=== PATIENT | male | born 1955 | race African-American/Black ===

== ENCOUNTER 2018-12-22 21:16 | Inpatient (IN) | payer MEDICAID ==
[~2018-12-22] VITALS: Ht 170.2 cm; Wt 59.6 kg
--- NOTE | 2018-12-22 21:24 | NUR ---
rocio. report received from ems. pt c/o chest tightness x 2days with cough. hx of pneumonia. pt's aox4. resps even and unlabored. pt denies n/v/d at this time. all monitors in place. call light within reach. edmd at bedside to assess at this time.
[2018-12-22] MEDS ORDERED: ASPIRIN 81 MG TABLET CHEW ONE (21:27)
[2018-12-22] MEDS ORDERED: methylPREDNISolone SOD SUCC 125 MG/2 ML ONE (21:28)
[2018-12-22] MEDS ORDERED: MORPHINE SULFATE 4 MG/ML, 1ML ONE (21:28)
[2018-12-22] MEDS ORDERED: ALBUTEROL/IPRATROPIUM 2.5MG/0.5MG, 3 ML NPPB ONE (21:30)
[2018-12-22] MEDS ORDERED: SODIUM CHLORIDE FLUSH 10ML SYR IVF ONE (21:30)
[2018-12-22] MEDS ORDERED: MORPHINE SULFATE 4 MG/ML, 1ML IVPush PRN (21:30)
[2018-12-22] MEDS ORDERED: methylPREDNISolone SOD SUCC 125 MG/2 ML IVP ONE (21:30)
[2018-12-22] MEDS ORDERED: ASPIRIN 81 MG TABLET CHEW PO ONE (21:30)
--- NOTE | 2018-12-22 21:37 | NUR ---
pt medicated per emar. pt tolerated well. pt's aox4. resps even and unlabored.
--- NOTE | 2018-12-22 21:37 | NUR ---
rt at bedside now.
[2018-12-22] MEDS ORDERED: ATOR10TA9 PO (21:55)
[2018-12-22] MEDS ORDERED: AMLO10TA8 PO (21:55)
[2018-12-22] MEDS ORDERED: FURO-93 PO (21:55)
[2018-12-22] MEDS ORDERED: CLOP75TA52 PO (21:56)
--- NOTE | 2018-12-22 22:00 | NUR ---
URINAL AT BEDSIDE NOW
[2018-12-22 22:03] LABS: BASOPHILS # (AUTO) 0.04 x10^3/uL (0-0.1); BASOPHILS % (AUTO) 0 % (0-1); EOSINOPHILS # (AUTO) 0.06 x10^3/uL (0-0.4); EOSINOPHILS % (AUTO) 0 % (1-7); LYMPHOCYTES # (AUTO) 1.19 x10^3/uL (1-3.4); LYMPHOCYTES % (AUTO) 9 % (22-44); MD NO; MEAN CORPUSCULAR HEMOGLOBIN 28.3 pg (27.5-34.5); MEAN CORPUSCULAR HGB CONC 33.8 g/dL (33.2-36.2); MEAN CORPUSCULAR VOLUME 83.9 fL (81-97); MEAN PLATELET VOLUME 7.7 fL (7.4-10.4); MONOCYTES # (AUTO) 1.14 x10^3/uL (0.2-0.8); MONOCYTES % (AUTO) 9 % (2-9); NEUTROPHILS # (AUTO) 10.96 x10^3/uL (1.8-6.8); NEUTROPHILS % (AUTO) 82 % (42-75); PLATELET COUNT 267 x10^3/uL (130-400); RED BLOOD COUNT 3.47 x10^6/uL (4.38-5.82); RED CELL DISTRIBUTION WIDTH 16.2 % (9.4-14.8)
[2018-12-22 22:13] LABS: ALANINE AMINOTRANSFERASE 23 U/L (12-78); ALBUMIN 2.6 g/dL (3.4-5.0); ANION GAP 6 mmol/L (5-15); CALCIUM 8.3 mg/dL (8.5-10.1); CHLORIDE 100 mmol/L (98-107); CREATININE 0.98 mg/dL (0.7-1.3)
[2018-12-22 22:18] LABS: ALKALINE PHOSPHATASE 86 U/L (45-117); BILIRUBIN,TOTAL 0.2 mg/dL (0.2-1.0); TOTAL PROTEIN 7.7 g/dL (6.4-8.2); TROPONIN I 0.027 ng/mL (0.000-0.045)
[2018-12-22 22:52] LABS: AMPHETAMINE SCREEN, URINE Negative (Negative); BARBITURATE SCREEN, URINE Negative (Negative); BENZODIAZEPINE SCREEN, URINE Negative (Negative); CANNABINOID SCREEN, URINE Negative (Negative); COCAINE SCREEN, URINE Negative (Negative); METHADONE SCREEN, URINE Negative (Negative); OPIATE SCREEN, URINE Positive (Negative)
--- NOTE | 2018-12-22 23:57 | NUR ---
PT RESTING IN [facility]. PT'S AOX4. RESPS EVEN AND UNLABORED. ALL MONITORS IN PLACE. CALL LIGHT WITHIN REACH.
[2018-12-23] MEDS ORDERED: FUROSEMIDE 20 MG/2 ML ONE ×2 (00:58→07:55)
[2018-12-23] MEDS ORDERED: POLYETHYLENE GLYCOL 17 GM PACKET PO PRN (01:00)
[2018-12-23] MEDS ORDERED: hydrALAzine 20 MG/ML, 1ML IVPush PRN (01:00)
[2018-12-23] MEDS ORDERED: METOPROLOL TARTRATE 25 MG TABLET ONE (01:03)
[2018-12-23] MEDS: FUROSEMIDE 20 MG/2 ML IV SCH ×3 (01:05→16:55)
--- NOTE | 2018-12-23 01:14 | NUR ---
PT MEDICATED PER EMAR. PT TOLERATED WELL. PT'S AOX4. RESPS EVEN AND UNLABORED.
--- NOTE | 2018-12-23 01:14 | NUR ---
MED ORDERED FROM PHARMACY AT THIS TIME.
[2018-12-23 01:46] LABS: INTERNATIONAL NORMALIZED RATIO 1.12 (0.93-1.1); PROTHROMBIN TIME 11.7 Seconds (9.6-11.5)
[2018-12-23] MEDS: METOPROLOL SUCCINATE 25 MG TAB.ER.24H PO SCH ×2 (01:47→05:54)
--- NOTE | 2018-12-23 01:48 | NUR ---
PT MEDICATED PER EMAR. PT TOLERATED WELL. PT'S AOX4. RESPS EVEN AND UNLANBORED.
[2018-12-23 01:53] LABS: TROPONIN I 0.019 ng/mL (0.000-0.045)
[2018-12-23] MEDS ORDERED: OMNIPAQUE 350 MG/ML, 150 ML BOTTLE ONE (02:19)
--- NOTE | 2018-12-23 02:40 | NUR ---
PT RESTING IN [facility]. RESPS EVEN AND UNLABORED. ALL MONITORS IN PLACE. CALL LIGHT WITHIN REACH.
--- NOTE | 2018-12-23 03:52 | NUR ---
PT SLEEPING IN [facility]. RESPS EVEN AND UNLABORED. ALL MONITORS IN PLACE. CALL LIGHT WITHIN REACH.
--- NOTE | 2018-12-23 04:35 | NUR ---
PT PROVIDED HOSPITAL BED AT THIS TIME.
--- NOTE | 2018-12-23 05:19 | NUR ---
pt sleeping in hospital bed. resps even and unlabored. all monitors in place. call light within reach.
--- NOTE | 2018-12-23 05:46 | NUR ---
med ordered from pharmacy at this time.
--- NOTE | 2018-12-23 05:55 | NUR ---
PT MEDICATED PER EMAR. PT TOLERATED WELL. PT'S AOX4. RESPS EVEN AND UNLABORED.
--- NOTE | 2018-12-23 06:57 | NUR ---
report given to yuly dailey.
--- NOTE | 2018-12-23 07:00 | NUR ---
RECEIVED BEDSIDE REPORT FROM TUCKER. PT DENIES ANY NEEDS AT THIS TIME. WATCHING TV IN BED. HR SINUS. CALL LIGHT IN PLACE, IN HOSPITAL BED.
[2018-12-23 07:32] LABS: TROPONIN I 0.016 ng/mL (0.000-0.045)
--- NOTE | 2018-12-23 08:02 | NUR ---
PT EATING BREAKFAST, VERBALIZED NO NEEDS AT THIS TIME
[2018-12-23] MEDS ORDERED: LISINOPRIL 5 MG TABLET ONE (08:54)
[2018-12-23] MEDS ORDERED: CLOPIDOGREL 75 MG TABLET ONE (08:54)
[2018-12-23] MEDS: CLOPIDOGREL 75 MG TABLET PO SCH (08:56)
[2018-12-23] MEDS: LISINOPRIL 5 MG TABLET PO SCH (08:57)
[2018-12-23] MEDS ORDERED: AMLODIPINE 10 MG TAB PO SCH (09:00)
--- NOTE | 2018-12-23 09:03 | NUR ---
ATE 100% BREAKFAST, WATCHING TV, CAR SHAGGER SINUS TACY AT 107, VERBALZIED NO NEEDS AT THIS TIME. CALL LIGHT IN PLACE, DENIES PAIN OR SOB.
--- NOTE | 2018-12-23 10:00 | NUR ---
PT WATCHING TV, VERBALIZED NO NEEDS AT THIS TIME
[2018-12-23] MEDS ORDERED: ALBUTEROL SULFATE 2.5 MG/3 ML ONE ×2 (10:26→14:13)
[2018-12-23] MEDS ORDERED: ALBUTEROL SULFATE 2.5 MG/3 ML NPPB PRN (10:30)
[2018-12-23] MEDS: ALBUTEROL SULFATE 2.5 MG/3 ML NPPB SCH ×2 (10:39→15:00)
--- NOTE | 2018-12-23 11:00 | NUR ---
PT SLEEPING, RESP EVEN AND UNLABORED
--- NOTE | 2018-12-23 12:00 | NUR ---
LUNCH GIVEN TO PATIENT. VERBALIZED NO NEEDS AT THIS TIME
--- NOTE | 2018-12-23 13:02 | NUR ---
CALLED DR. BELLO AND EXPLAINED BLOOD CULTURES X 2 POSITIVE, NO ORDERS RECEIVED
--- NOTE | 2018-12-23 13:32 | NUR ---
PT UP TO BATHROOM WITH STAND BY ASSIST. PT GAIT SLOW AND STEADY
--- NOTE | 2018-12-23 14:18 | NUR ---
REPORT TO JESÚS PLAN OF CARE DISCUSSED
[2018-12-23] MEDS ORDERED: ATOR20TA86 PO (14:51)
[2018-12-23] MEDS ORDERED: AMLO2.5T5 PO (14:52)
[2018-12-23 14:54] VITALS: BP 141/69
[2018-12-23] MEDS ORDERED: VANCOMYCIN 1,500 MG in SODIUM CHLORIDE 0.9% 250 ML IV SCH (15:30)
[2018-12-23] MEDS ORDERED: VANCOMYCIN 1,500 MG in SODIUM CHLORIDE 0.9% 250 ML IV ONE (15:30)
[2018-12-23] MEDS: ENOXAPARIN 40 MG/0.4 ML SQ SCH (16:55)
[2018-12-23 17:16] LABS: HCT (SEDRATE) 26.7 % (39.2-51.8)
[2018-12-23 19:41] VITALS: BP 103/52
[2018-12-23] MEDS: ATORVASTATIN 40 MG TABLET PO SCH (20:34)
[2018-12-24 01:49] VITALS: BP 146/79
[2018-12-24 03:36] LABS: MEAN CORPUSCULAR HGB CONC 33.2 g/dL (33.2-36.2); MEAN CORPUSCULAR VOLUME 84.3 fL (81-97); MEAN PLATELET VOLUME 7.6 fL (7.4-10.4); PLATELET COUNT 319 x10^3/uL (130-400); RED BLOOD COUNT 3.35 x10^6/uL (4.38-5.82); RED CELL DISTRIBUTION WIDTH 15.9 % (9.4-14.8)
[2018-12-24 03:42] LABS: ALANINE AMINOTRANSFERASE 22 U/L (12-78); ALBUMIN 2.2 g/dL (3.4-5.0); ANION GAP 6 mmol/L (5-15); CALCIUM 8.4 mg/dL (8.5-10.1); CHLORIDE 102 mmol/L (98-107); CREATININE 0.94 mg/dL (0.7-1.3)
[2018-12-24 03:44] LABS: ALKALINE PHOSPHATASE 69 U/L (45-117); BILIRUBIN,TOTAL 0.2 mg/dL (0.2-1.0)
[2018-12-24] MEDS: VANCOMYCIN PMX 1GM/200ML 200 ML IVPB SCH ×2 (04:10→16:08)
[2018-12-24 05:49] LABS: BASOPHILS % (AUTO) 1 % (0-1); EOSINOPHILS # (AUTO) 0.03 x10^3/uL (0-0.4); EOSINOPHILS % (AUTO) 0 % (1-7); LYMPHOCYTES # (AUTO) 1.12 x10^3/uL (1-3.4); LYMPHOCYTES % (AUTO) 7 % (22-44); MD SCAN; MONOCYTES # (AUTO) 0.67 x10^3/uL (0.2-0.8); MONOCYTES % (AUTO) 4 % (2-9); NEUTROPHILS # (AUTO) 13.96 x10^3/uL (1.8-6.8); NEUTROPHILS % (AUTO) 88 % (42-75)
[2018-12-24] MEDS: METOPROLOL SUCCINATE 25 MG TAB.ER.24H PO SCH (06:03)
[2018-12-24] MEDS: ALBUTEROL SULFATE 2.5 MG/3 ML NPPB SCH ×5 (07:20→20:02)
[2018-12-24] MEDS: FUROSEMIDE 20 MG/2 ML IV SCH ×2 (08:40→16:08)
[2018-12-24] MEDS: LISINOPRIL 5 MG TABLET PO SCH (08:40)
[2018-12-24] MEDS: CLOPIDOGREL 75 MG TABLET PO SCH (08:40)
[2018-12-24 09:19] VITALS: BP 120/71
[2018-12-24 15:45] VITALS: BP 96/68
[2018-12-24] MEDS: ENOXAPARIN 40 MG/0.4 ML SQ SCH (16:08)
[2018-12-24] MEDS: ACETAMINOPHEN 325 MG TABLET PO PRN (16:55)
[2018-12-24] MEDS: ATORVASTATIN 40 MG TABLET PO SCH (20:01)
[2018-12-24 20:18] VITALS: BP 126/64
[2018-12-25 00:50] VITALS: BP 132/86
[2018-12-25] MEDS: VANCOMYCIN PMX 1GM/200ML 200 ML IVPB SCH (03:31)
[2018-12-25 04:22] LABS: BASOPHILS # (AUTO) 0.03 x10^3/uL (0-0.1); BASOPHILS % (AUTO) 0 % (0-1); EOSINOPHILS # (AUTO) 0.11 x10^3/uL (0-0.4); EOSINOPHILS % (AUTO) 1 % (1-7); LYMPHOCYTES # (AUTO) 1.41 x10^3/uL (1-3.4); LYMPHOCYTES % (AUTO) 15 % (22-44); MD NO; MEAN CORPUSCULAR HEMOGLOBIN 28.4 pg (27.5-34.5); MEAN CORPUSCULAR HGB CONC 34.1 g/dL (33.2-36.2); MEAN CORPUSCULAR VOLUME 83.2 fL (81-97); MEAN PLATELET VOLUME 7.4 fL (7.4-10.4); MONOCYTES # (AUTO) 1.16 x10^3/uL (0.2-0.8); MONOCYTES % (AUTO) 12 % (2-9); NEUTROPHILS # (AUTO) 6.73 x10^3/uL (1.8-6.8); NEUTROPHILS % (AUTO) 71 % (42-75); PLATELET COUNT 327 x10^3/uL (130-400); RED CELL DISTRIBUTION WIDTH 15.9 % (9.4-14.8)
[2018-12-25 04:30] LABS: ANION GAP 5 mmol/L (5-15); CALCIUM 8.5 mg/dL (8.5-10.1); CHLORIDE 104 mmol/L (98-107); CREATININE 0.92 mg/dL (0.7-1.3)
[2018-12-25 04:31] LABS: VANCOMYCIN,TROUGH 34.6 mcg/mL (5.0-10.0)
[2018-12-25] MEDS: METOPROLOL SUCCINATE 25 MG TAB.ER.24H PO SCH (05:31)
[2018-12-25] MEDS: ALBUTEROL SULFATE 2.5 MG/3 ML NPPB SCH ×4 (06:50→19:31)
[2018-12-25 07:30] VITALS: BP 125/75
[2018-12-25] MEDS: CLOPIDOGREL 75 MG TABLET PO SCH (08:11)
[2018-12-25] MEDS: FUROSEMIDE 20 MG/2 ML IV SCH ×2 (08:11→16:11)
[2018-12-25] MEDS: LISINOPRIL 5 MG TABLET PO SCH (08:11)
[2018-12-25] MEDS: CEFTRIAXONE PMX 2GM/50ML 50 ML IV SCH (09:48)
[2018-12-25 12:10] VITALS: BP 137/79
[2018-12-25] MEDS: ENOXAPARIN 40 MG/0.4 ML SQ SCH (16:10)
[2018-12-25] MEDS: ACETAMINOPHEN 325 MG TABLET PO PRN ×2 (17:48→23:59)
[2018-12-25 18:55] VITALS: BP 126/77
[2018-12-25] MEDS: ATORVASTATIN 40 MG TABLET PO SCH (20:07)
[2018-12-26 00:15] VITALS: BP 123/79
[2018-12-26 05:30] VITALS: BP 133/74
[2018-12-26] MEDS: ACETAMINOPHEN 325 MG TABLET PO PRN ×2 (05:34→12:58)
[2018-12-26] MEDS: METOPROLOL SUCCINATE 25 MG TAB.ER.24H PO SCH (05:34)
[2018-12-26 06:07] LABS: BASOPHILS # (AUTO) 0.09 x10^3/uL (0-0.1); BASOPHILS % (AUTO) 1 % (0-1); EOSINOPHILS # (AUTO) 0.16 x10^3/uL (0-0.4); EOSINOPHILS % (AUTO) 2 % (1-7); LYMPHOCYTES # (AUTO) 1.42 x10^3/uL (1-3.4); LYMPHOCYTES % (AUTO) 14 % (22-44); MD NO; MEAN CORPUSCULAR HEMOGLOBIN 28.1 pg (27.5-34.5); MEAN CORPUSCULAR HGB CONC 33.5 g/dL (33.2-36.2); MEAN CORPUSCULAR VOLUME 84.1 fL (81-97); MEAN PLATELET VOLUME 7.6 fL (7.4-10.4); MONOCYTES # (AUTO) 0.88 x10^3/uL (0.2-0.8); MONOCYTES % (AUTO) 9 % (2-9); NEUTROPHILS # (AUTO) 7.55 x10^3/uL (1.8-6.8); NEUTROPHILS % (AUTO) 75 % (42-75); PLATELET COUNT 383 x10^3/uL (130-400); RED BLOOD COUNT 3.53 x10^6/uL (4.38-5.82); RED CELL DISTRIBUTION WIDTH 15.8 % (9.4-14.8)
[2018-12-26 06:19] LABS: ANION GAP 4 mmol/L (5-15); CALCIUM 8.7 mg/dL (8.5-10.1); CHLORIDE 104 mmol/L (98-107)
[2018-12-26 06:22] LABS: CREATININE 0.86 mg/dL (0.7-1.3)
[2018-12-26 07:23] VITALS: BP 133/78
[2018-12-26] MEDS: ALBUTEROL SULFATE 2.5 MG/3 ML NPPB SCH ×2 (08:00→20:15)
[2018-12-26] MEDS: FUROSEMIDE 20 MG/2 ML IV SCH ×2 (08:03→17:13)
[2018-12-26] MEDS: HEPARIN 5,000 UNITS/ML, 1ML SQ SCH ×2 (08:03→20:36)
[2018-12-26] MEDS: CLOPIDOGREL 75 MG TABLET PO SCH (08:04)
[2018-12-26] MEDS: CEFTRIAXONE PMX 2GM/50ML 50 ML IV SCH (08:04)
[2018-12-26] MEDS: LISINOPRIL 5 MG TABLET PO SCH (08:04)
[2018-12-26 12:34] VITALS: BP 139/81
[2018-12-26 18:35] VITALS: BP 120/70
[2018-12-26] MEDS: ATORVASTATIN 40 MG TABLET PO SCH (20:36)
[2018-12-27 00:25] VITALS: BP 122/72
[2018-12-27 05:48] VITALS: BP 125/74
[2018-12-27] MEDS: METOPROLOL SUCCINATE 25 MG TAB.ER.24H PO SCH (06:17)
[2018-12-27 06:34] LABS: % IRON SATURATION 22 % (20-55); IRON LEVEL 42 mcg/dL (65-175); TOTAL IRON BINDING CAPACITY 194 mcg/dL (250-450)
[2018-12-27] MEDS: ALBUTEROL SULFATE 2.5 MG/3 ML NPPB SCH ×2 (07:40→21:00)
[2018-12-27] MEDS: HEPARIN 5,000 UNITS/ML, 1ML SQ SCH ×2 (08:00→20:38)
[2018-12-27 08:15] VITALS: BP 114/71
[2018-12-27] MEDS: CEFTRIAXONE PMX 2GM/50ML 50 ML IV SCH (08:15)
[2018-12-27] MEDS: CLOPIDOGREL 75 MG TABLET PO SCH (09:00)
[2018-12-27] MEDS: LISINOPRIL 5 MG TABLET PO SCH (11:30)
[2018-12-27] MEDS ORDERED: BUPIVACAINE/PF 0.25% ONE (13:57)
[2018-12-27] MEDS ORDERED: EPINEPHRINE 1 MG/ML, 1ML ONE (13:57)
[2018-12-27] MEDS ORDERED: LIDOCAINE 1%, 20ML ONE (13:57)
[2018-12-27 13:58] VITALS: BP 107/69
[2018-12-27] MEDS ORDERED: PROPOFOL 10 MG/ML, 20ML ONE (14:17)
[2018-12-27] MEDS ORDERED: SUCCINYLCHOLINE 20 MG/ML, 10ML ONE (14:17)
[2018-12-27] MEDS ORDERED: ONDANSETRON 2MG/ML, 2ML ONE (14:17)
[2018-12-27] MEDS ORDERED: FENTANYL PF 100 MCG/2ML ONE ×2 (14:21→14:30)
[2018-12-27] MEDS ORDERED: MIDAZOLAM 1 MG/ML, 2ML ONE (14:21)
[2018-12-27] MEDS ORDERED: HYDROmorphone 2 MG/ML, 1ML IVPush PRN (14:30)
[2018-12-27] MEDS ORDERED: LABETALOL 5MG/ML, 20ML IV PRN (14:30)
[2018-12-27] MEDS ORDERED: hydrALAzine 20 MG/ML, 1ML IV PRN (14:30)
[2018-12-27] MEDS ORDERED: LORazepam 2 MG/ML, 1ML IVPush PRN (14:30)
[2018-12-27] MEDS ORDERED: OXYcodone 5 MG/5 ML ORAL.SOL UDC PO PRN (14:30)
[2018-12-27] MEDS ORDERED: FENTANYL PF 100 MCG/2ML IV PRN (14:30)
[2018-12-27] MEDS ORDERED: ALBUTEROL SULFATE 2.5 MG/3 ML NPPB PRN (14:30)
[2018-12-27] MEDS ORDERED: ACETAMINOPHEN 325 MG TABLET PO PRN (14:30)
[2018-12-27] MEDS ORDERED: ONDANSETRON 2MG/ML, 2ML IV PRN (14:30)
[2018-12-27] MEDS: CARVEDILOL 6.25 MG TABLET PO SCH (17:39)
[2018-12-27] MEDS: ACETAMINOPHEN 325 MG TABLET PO PRN ×2 (17:39→22:34)
[2018-12-27 17:56] VITALS: BP 157/83
[2018-12-27 18:30] VITALS: BP 146/74
[2018-12-27] MEDS ORDERED: CARVEDILOL 6.25 MG TABLET PO ONE (18:30)
[2018-12-27] MEDS: ATORVASTATIN 40 MG TABLET PO SCH (20:38)
[2018-12-28 00:24] VITALS: BP 138/74
[2018-12-28] MEDS: ACETAMINOPHEN 325 MG TABLET PO PRN (03:48)
[2018-12-28 05:37] VITALS: BP 154/88
[2018-12-28] MEDS: CARVEDILOL 6.25 MG TABLET PO SCH ×2 (05:40→18:37)
[2018-12-28 08:00] VITALS: BP 160/81
[2018-12-28] MEDS: CLOPIDOGREL 75 MG TABLET PO SCH (08:44)
[2018-12-28] MEDS: HEPARIN 5,000 UNITS/ML, 1ML SQ SCH ×2 (08:45→20:45)
[2018-12-28] MEDS: LISINOPRIL 5 MG TABLET PO SCH (08:45)
[2018-12-28] MEDS: CEFTRIAXONE PMX 2GM/50ML 50 ML IV SCH (08:45)
[2018-12-28] MEDS: ALBUTEROL SULFATE 2.5 MG/3 ML NPPB SCH ×2 (10:03→19:50)
[2018-12-28] MEDS: ACETAMINOPHEN 325 MG TABLET PO SCH ×3 (10:38→23:47)
[2018-12-28] MEDS: CHLORHEXIDINE 15 ML UDC MM SCH ×2 (10:39→20:45)
[2018-12-28] MEDS: KETOROLAC 30 MG/1 ML IVPush PRN ×2 (10:39→18:37)
[2018-12-28] MEDS: AMOXICILLIN/CLAV 500-125MG TABLET PO SCH ×2 (11:22→18:37)
[2018-12-28 14:23] VITALS: BP 132/66
[2018-12-28 19:05] VITALS: BP 134/66
[2018-12-28] MEDS: ATORVASTATIN 40 MG TABLET PO SCH (20:45)
[2018-12-29 00:11] VITALS: BP 152/82
[2018-12-29] MEDS: KETOROLAC 30 MG/1 ML IVPush PRN ×2 (01:43→15:43)
[2018-12-29] MEDS: AMOXICILLIN/CLAV 500-125MG TABLET PO SCH ×3 (01:43→19:51)
[2018-12-29 05:28] VITALS: BP 159/94
[2018-12-29] MEDS: CARVEDILOL 6.25 MG TABLET PO SCH ×2 (05:30→17:31)
[2018-12-29] MEDS: ACETAMINOPHEN 325 MG TABLET PO SCH ×4 (05:30→23:17)
[2018-12-29 05:38] VITALS: BP 124/67
[2018-12-29 07:54] VITALS: BP 156/82
[2018-12-29] MEDS: CHLORHEXIDINE 15 ML UDC MM SCH ×2 (08:17→20:47)
[2018-12-29] MEDS: CEFTRIAXONE PMX 2GM/50ML 50 ML IV SCH (08:18)
[2018-12-29] MEDS: HEPARIN 5,000 UNITS/ML, 1ML SQ SCH ×2 (08:18→19:51)
[2018-12-29] MEDS: CLOPIDOGREL 75 MG TABLET PO SCH (08:18)
[2018-12-29] MEDS: LISINOPRIL 5 MG TABLET PO SCH ×2 (08:18→14:51)
[2018-12-29] MEDS: ALBUTEROL SULFATE 2.5 MG/3 ML NPPB SCH ×2 (10:35→18:51)
[2018-12-29 12:35] VITALS: BP 155/87
[2018-12-29] MEDS: AMLODIPINE 2.5 MG TABLET PO SCH (14:52)
[2018-12-29 18:39] VITALS: BP 105/55
[2018-12-29] MEDS: ATORVASTATIN 40 MG TABLET PO SCH (19:57)
[2018-12-30 00:32] VITALS: BP 137/71
[2018-12-30] MEDS: AMOXICILLIN/CLAV 500-125MG TABLET PO SCH ×3 (03:21→19:29)
[2018-12-30] MEDS: ACETAMINOPHEN 325 MG TABLET PO SCH ×4 (05:06→23:25)
[2018-12-30] MEDS: CARVEDILOL 6.25 MG TABLET PO SCH ×2 (05:06→17:03)
[2018-12-30 05:07] VITALS: BP 150/72
[2018-12-30 07:08] VITALS: BP 132/76
[2018-12-30] MEDS: CHLORHEXIDINE 15 ML UDC MM SCH ×2 (08:28→21:49)
[2018-12-30] MEDS: HEPARIN 5,000 UNITS/ML, 1ML SQ SCH ×2 (08:28→19:29)
[2018-12-30] MEDS: CEFTRIAXONE PMX 2GM/50ML 50 ML IV SCH (08:29)
[2018-12-30] MEDS: LISINOPRIL 5 MG TABLET PO SCH (08:29)
[2018-12-30] MEDS: CLOPIDOGREL 75 MG TABLET PO SCH (08:29)
[2018-12-30] MEDS: AMLODIPINE 2.5 MG TABLET PO SCH (08:29)
[2018-12-30] MEDS: ALBUTEROL SULFATE 2.5 MG/3 ML NPPB SCH ×2 (09:00→19:58)
[2018-12-30 12:40] VITALS: BP 135/75
[2018-12-30 17:02] VITALS: BP 146/81
[2018-12-30] MEDS: ATORVASTATIN 40 MG TABLET PO SCH (19:29)
[2018-12-30 20:07] VITALS: BP 122/65
[2018-12-31 01:08] VITALS: BP 151/87
[2018-12-31] MEDS: AMOXICILLIN/CLAV 500-125MG TABLET PO SCH ×3 (04:09→22:55)
[2018-12-31] MEDS: ACETAMINOPHEN 325 MG TABLET PO SCH ×4 (06:28→22:55)
[2018-12-31 06:29] VITALS: BP 148/84
[2018-12-31] MEDS: CARVEDILOL 6.25 MG TABLET PO SCH ×2 (06:29→18:10)
[2018-12-31 07:58] VITALS: BP 147/84
[2018-12-31] MEDS: CEFTRIAXONE PMX 2GM/50ML 50 ML IV SCH (08:47)
[2018-12-31] MEDS: CHLORHEXIDINE 15 ML UDC MM SCH ×2 (08:47→20:32)
[2018-12-31] MEDS: HEPARIN 5,000 UNITS/ML, 1ML SQ SCH ×2 (08:47→20:32)
[2018-12-31] MEDS: LISINOPRIL 5 MG TABLET PO SCH (08:48)
[2018-12-31] MEDS: CLOPIDOGREL 75 MG TABLET PO SCH (08:48)
[2018-12-31] MEDS: AMLODIPINE 2.5 MG TABLET PO SCH (08:48)
[2018-12-31] MEDS: ALBUTEROL SULFATE 2.5 MG/3 ML NPPB SCH (09:00)
[2018-12-31 12:30] VITALS: BP 144/82
[2018-12-31 20:29] VITALS: BP 113/70
[2018-12-31] MEDS: ATORVASTATIN 40 MG TABLET PO SCH (20:32)
[2019-01-01 02:35] VITALS: BP 163/90
[2019-01-01 05:51] LABS: BASOPHILS # (AUTO) 0.33 x10^3/uL (0-0.1); BASOPHILS % (AUTO) 3 % (0-1); EOSINOPHILS # (AUTO) 0.16 x10^3/uL (0-0.4); EOSINOPHILS % (AUTO) 1 % (1-7); LYMPHOCYTES # (AUTO) 1.48 x10^3/uL (1-3.4); LYMPHOCYTES % (AUTO) 13 % (22-44); MD NO; MEAN CORPUSCULAR HEMOGLOBIN 28.4 pg (27.5-34.5); MEAN CORPUSCULAR HGB CONC 33.7 g/dL (33.2-36.2); MEAN CORPUSCULAR VOLUME 84.2 fL (81-97); MEAN PLATELET VOLUME 7.3 fL (7.4-10.4); MONOCYTES # (AUTO) 0.78 x10^3/uL (0.2-0.8); MONOCYTES % (AUTO) 7 % (2-9); NEUTROPHILS # (AUTO) 8.48 x10^3/uL (1.8-6.8); NEUTROPHILS % (AUTO) 76 % (42-75); PLATELET COUNT 457 x10^3/uL (130-400); RED BLOOD COUNT 3.91 x10^6/uL (4.38-5.82); RED CELL DISTRIBUTION WIDTH 16.9 % (9.4-14.8)
[2019-01-01 05:53] LABS: HCT (SEDRATE) 32.6 % (39.2-51.8)
[2019-01-01 06:04] LABS: ALBUMIN 2.8 g/dL (3.4-5.0); ANION GAP 5 mmol/L (5-15); CALCIUM 9.5 mg/dL (8.5-10.1); CHLORIDE 101 mmol/L (98-107)
[2019-01-01 06:15] LABS: ALANINE AMINOTRANSFERASE 34 U/L (12-78); ALKALINE PHOSPHATASE 71 U/L (45-117); BILIRUBIN,TOTAL 0.4 mg/dL (0.2-1.0); CREATININE 1.01 mg/dL (0.7-1.3)
[2019-01-01 06:19] VITALS: BP 145/83
[2019-01-01] MEDS: ACETAMINOPHEN 325 MG TABLET PO SCH ×4 (06:21→22:45)
[2019-01-01] MEDS: CARVEDILOL 6.25 MG TABLET PO SCH (06:21)
[2019-01-01 07:32] VITALS: BP 135/85
[2019-01-01] MEDS: CHLORHEXIDINE 15 ML UDC MM SCH ×2 (08:06→21:45)
[2019-01-01] MEDS: CEFTRIAXONE PMX 2GM/50ML 50 ML IV SCH (08:09)
[2019-01-01] MEDS: AMOXICILLIN/CLAV 500-125MG TABLET PO SCH ×3 (08:09→22:47)
[2019-01-01] MEDS: HEPARIN 5,000 UNITS/ML, 1ML SQ SCH ×2 (08:09→21:45)
[2019-01-01] MEDS: LISINOPRIL 5 MG TABLET PO SCH (08:09)
[2019-01-01] MEDS: CLOPIDOGREL 75 MG TABLET PO SCH (08:10)
[2019-01-01] MEDS: AMLODIPINE 2.5 MG TABLET PO SCH (08:10)
[2019-01-01 14:00] VITALS: BP 145/87
[2019-01-01] MEDS: CARVEDILOL 12.5 MG TABLET PO SCH (17:12)
[2019-01-01 19:46] VITALS: BP 129/72
[2019-01-01] MEDS: ATORVASTATIN 40 MG TABLET PO SCH (21:45)
[2019-01-02 01:14] VITALS: BP 116/75
[2019-01-02] MEDS: ACETAMINOPHEN 325 MG TABLET PO SCH ×4 (05:00→23:30)
[2019-01-02] MEDS: CARVEDILOL 12.5 MG TABLET PO SCH ×2 (05:48→17:40)
[2019-01-02 07:07] VITALS: BP 114/63
[2019-01-02] MEDS: HEPARIN 5,000 UNITS/ML, 1ML SQ SCH ×2 (09:36→22:25)
[2019-01-02] MEDS: CHLORHEXIDINE 15 ML UDC MM SCH ×2 (09:37→22:26)
[2019-01-02] MEDS: AMOXICILLIN/CLAV 500-125MG TABLET PO SCH (09:37)
[2019-01-02] MEDS: CEFTRIAXONE PMX 2GM/50ML 50 ML IV SCH (09:37)
[2019-01-02] MEDS: LISINOPRIL 5 MG TABLET PO SCH (09:37)
[2019-01-02] MEDS: CLOPIDOGREL 75 MG TABLET PO SCH (09:37)
[2019-01-02] MEDS: AMLODIPINE 2.5 MG TABLET PO SCH (09:37)
[2019-01-02 15:31] VITALS: BP 106/60
[2019-01-02 19:34] VITALS: BP 99/61
[2019-01-02] MEDS: ATORVASTATIN 40 MG TABLET PO SCH (22:26)
[2019-01-03 01:38] VITALS: BP 152/91
[2019-01-03 06:06] VITALS: BP 142/87
[2019-01-03] MEDS: ACETAMINOPHEN 325 MG TABLET PO SCH (06:06)
[2019-01-03] MEDS: CARVEDILOL 12.5 MG TABLET PO SCH (06:06)
[2019-01-03 06:54] VITALS: BP 102/68
[2019-01-03] MEDS ORDERED: CARV12.543 PO (07:31)
[2019-01-03] MEDS ORDERED: ATOR20TA86 PO (07:31)
[2019-01-03] MEDS ORDERED: LISI5TAB7 PO (07:31)
[2019-01-03] MEDS ORDERED: CHLO473M MM (07:31)
[2019-01-03] MEDS: CHLORHEXIDINE 15 ML UDC MM SCH (09:23)
[2019-01-03] MEDS: CLOPIDOGREL 75 MG TABLET PO SCH (09:23)
[2019-01-03] MEDS: LISINOPRIL 5 MG TABLET PO SCH (09:23)
[2019-01-03] MEDS: CEFTRIAXONE PMX 2GM/50ML 50 ML IV SCH (09:23)
[2019-01-03] MEDS: AMLODIPINE 2.5 MG TABLET PO SCH (09:23)
[2019-01-03] MEDS: HEPARIN 5,000 UNITS/ML, 1ML SQ SCH (09:24)
== END 2019-01-03 10:35 | DRG 853 ==
LOC: ED 23:50 → EDIP 12-23 00:31 → 4WST 12-23 14:30 → 3NE 01-01 18:06
PROVIDERS: ADMIT Family Medicine; ATTEND Family Medicine
PROC: 0CDXXZ1 Extraction of Lower Tooth, Multiple, External Approach (ICD-10-PCS; 2018-12-27)
PROC: 0NQV0ZZ Repair Left Mandible, Open Approach (ICD-10-PCS; principal; 2018-12-27 16:00)
DX: A40.8 Other streptococcal sepsis (principal); J18.9 Pneumonia, unspecified organism; J96.21 Acute and chronic respiratory failure with hypoxia; T82.6XXA Infection and inflammatory reaction due to cardiac valve prosthesis, initial encounter; I38 Endocarditis, valve unspecified; J44.1 Chronic obstructive pulmonary disease with (acute) exacerbation; J44.0 Chronic obstructive pulmonary disease with (acute) lower respiratory infection; B18.2 Chronic viral hepatitis C; D64.9 Anemia, unspecified; I10 Essential (primary) hypertension; I25.10 Atherosclerotic heart disease of native coronary artery without angina pectoris; K02.9 Dental caries, unspecified; K04.7 Periapical abscess without sinus; K05.10 Chronic gingivitis, plaque induced; N40.0 Benign prostatic hyperplasia without lower urinary tract symptoms; Y83.1 Surgical operation with implant of artificial internal device as the cause of abnormal reaction of the patient, or of later complication, without mention of misadventure at the time of the procedure; Z59.0 Homelessness; Y92.89 Other specified places as the place of occurrence of the external cause; Z87.01 Personal history of pneumonia (recurrent); Z95.3 Presence of xenogenic heart valve
CPT/HCPCS: 36415; 70100; 99285; J3490; J7613; J7620; 36573; 71045; 71275; 76705; 80048; 80053; 80202; 80307; 83540; 83550; 83880; 84484; 85025; 85379; 85610; 85651; 86140; 87040; 87077; 87181; 93005; 93306; 94640; 96374; 96375; G0378; J0171; J0696; J1644; J1650; J1885; J2250; J2405; J2704; J3010; J3370; Q9967; C1751; J0330; J1940; J2930; J7050

== ENCOUNTER 2019-07-26 19:22 | Inpatient (IN) | payer MEDICAID ==
[~2019-07-26] VITALS: Ht 170.2 cm; Wt 57.6 kg
[~2019-07-26 19:22] MED LIST: AMLO10TA8 PO; AMLO2.5T5 PO; ATOR10TA9 PO; ATOR20TA86 PO; CARV12.543 PO; CHLO473M MM; CLOP75TA52 PO; FURO-93 PO; LISI5TAB7 PO
--- NOTE | 2019-07-26 20:19 | NUR ---
REPORT TO MARGO MORLEY
--- NOTE | 2019-07-26 20:25 | NUR ---
BEDSIDE REPORT AND CARE FROM NOAH ARAGON. ASSESSMENT COMPLETED. A&OX4. DR. LORENZO AT BEDSIDE FOR EVALUATION, AWAITING ORDERS. PT REPORTS "EARLIER TODAY I WAS HAVING SOME SHARP PAINS IN MY CHEST, FELT DIZZY AND A LITTLE SHORT OF BREATH BUT NOW I FEEL FINE, THE PAIN AND DIZZINESS ARE GONE." CONT PULSE OX, BP, CARDIAC MONITORS IN PLACE. NSR ON MONITOR. VSS. DENIES CP, SOB, DIZZINESS, MARTÍNEZ, N/V/D. CALL LIGHT IN REACH. FALL PRECAUTIONS IN PLACE. SIDE RAILS UPX2. A&OX4. ASSESSMENT COMPLETED.
[2019-07-26 20:42] LABS: BASOPHILS # (AUTO) 0.01 x10^3/uL (0-0.1); BASOPHILS % (AUTO) 0 % (0-1); EOSINOPHILS # (AUTO) 0.38 x10^3/uL (0-0.4); EOSINOPHILS % (AUTO) 3 % (1-7); LYMPHOCYTES # (AUTO) 1.19 x10^3/uL (1-3.4); LYMPHOCYTES % (AUTO) 10 % (22-44); MD NO; MEAN CORPUSCULAR HEMOGLOBIN 27.3 pg (27.5-34.5); MEAN CORPUSCULAR HGB CONC 32.4 g/dL (33.2-36.2); MEAN CORPUSCULAR VOLUME 84.2 fL (81-97); MEAN PLATELET VOLUME 7.6 fL (7.4-10.4); MONOCYTES # (AUTO) 0.33 x10^3/uL (0.2-0.8); MONOCYTES % (AUTO) 3 % (2-9); NEUTROPHILS # (AUTO) 10.07 x10^3/uL (1.8-6.8); NEUTROPHILS % (AUTO) 84 % (42-75); PLATELET COUNT 251 x10^3/uL (130-400); RED BLOOD COUNT 3.27 x10^6/uL (4.38-5.82); RED CELL DISTRIBUTION WIDTH 15.7 % (9.4-14.8)
[2019-07-26 20:51] LABS: ALANINE AMINOTRANSFERASE 18 U/L (12-78); ALBUMIN 2.6 g/dL (3.4-5.0); ANION GAP 5 mmol/L (5-15); CALCIUM 8.8 mg/dL (8.5-10.1); CHLORIDE 101 mmol/L (98-107); CREATININE 1.33 mg/dL (0.7-1.3)
[2019-07-26 20:56] LABS: ALKALINE PHOSPHATASE 99 U/L (45-117); BILIRUBIN,TOTAL 0.2 mg/dL (0.2-1.0); TOTAL PROTEIN 8.5 g/dL (6.4-8.2); TROPONIN I 0.031 ng/mL (0.000-0.045)
--- NOTE | 2019-07-26 21:37 | NUR ---
DR. LORENZO AT BEDSIDE DISCUSSING POC WITH PT. AWAITING CTA. RESTING COMFORTABLY, DOZING INTERMITTENTLY, VSS. DENIES ANY CP, SOB, DIZZINESS. NO PIV TO BE PLACED PER ERP, PT HAS PICC LINE IN PLACE PHARMACIST TO ER AND CT STAFF MAY USE PICC LINE PER DR. LORENZO AND CT OKAY. CALL LIGHT IN REACH. FALL PRECAUTIONS IN PLACE. DENIES NEED TO USE RESTROOM.
--- NOTE | 2019-07-26 21:56 | NUR ---
PT IN CT
[2019-07-26] MEDS ORDERED: OMNIPAQUE 350 MG/ML, 100ML BOTTLE ONE (22:07)
--- NOTE | 2019-07-26 22:13 | NUR ---
PT BACK FROM CT. NAD NOTED. RESTING COMFORTABLY. DENIES CP, SOB. VSS. SR ON MONITOR. CALL LIGHT IN REACH. FALL PRECAUTIONS IN PLACE.
--- NOTE | 2019-07-26 22:42 | NUR ---
PT UP FOR RECHECK
--- NOTE | 2019-07-26 22:55 | NUR ---
DR. LORENZO AT BEDSIDE DISCUSSING POC, PT TO BE ADMITTED, VERBALIZED UNDERSTANDING AND AGREES TO POC.
--- NOTE | 2019-07-26 23:37 | NUR ---
PT IS TELE HOLD, HOSPITAL BED REQUESTED FOR COMFORT VS ED GURNEY PT CURRENTLY ON. RESTING IN POSITION OF COMFORT. ADMITTING PROVIDER AT BEDSIDE FOR EVALUATION. PT ASSISTED WITH URINAL, DECLINED TO AMBULATE TO RESTROOM. VSS. SR ON MONITOR. CONTINUES TO DENY ANY CP, SOB OR PAIN AT THIS TIME. CALL LIGHT IN REACH. FALL PRECAUTIONS IN PLACE.
[2019-07-26] MEDS ORDERED: METO25TA35 PO (23:49)
[2019-07-26] MEDS ORDERED: LISI40TA PO (23:49)
[2019-07-26] MEDS ORDERED: ACET325T14 PO (23:51)
[2019-07-26] MEDS ORDERED: VANCOMYCIN IV (23:51)
[2019-07-27] MEDS ORDERED: PROMETHAZINE 25 MG/ML, 1ML IM PRN
[2019-07-27] MEDS ORDERED: ONDANSETRON ODT 4 MG PO PRN
[2019-07-27] MEDS ORDERED: POLYETHYLENE GLYCOL 17 GM PACKET PO PRN
[2019-07-27] MEDS ORDERED: OXYcodone IR 5MG TABLET PO PRN
[2019-07-27] MEDS ORDERED: ACETAMINOPHEN 325 MG TABLET PO PRN ×2
[2019-07-27] MEDS ORDERED: ONDANSETRON 2MG/ML, 2ML IVPush PRN
[2019-07-27] MEDS ORDERED: NITROGLYCERIN 0.4 MG BOTTLE (25 TABS) SL PRN
[2019-07-27] MEDS ORDERED: BISACODYL 10 MG SUPP PR PRN
[2019-07-27] MEDS ORDERED: morphine SULFATE 10 MG/ML, 1ML IVPush PRN
[2019-07-27] MEDS ORDERED: hydrALAzine 20 MG/ML, 1ML IVPush PRN
[2019-07-27] MEDS ORDERED: DOCUSATE 100 MG CAPSULE PO PRN
--- NOTE | 2019-07-27 00:42 | NUR ---
HOSPITAL BED RECEIVED FOR COMFORT, PT TRANSFERRED TO HOSPITAL, AMBULATED TO STAND AND TRANSFER SELF WITH MINIMAL ASSISTANCE. PT ALSO STOOD AT BEDSIDE AND USED URINAL. RESTING IN POSITION OF COMFORT. CONTINUES TO DENY CP, SOB AND ANY PAIN OR DIZZINESS. VSS. SR ON MONITOR. CALL LIGHT IN REACH. FALL PRECAUTIONS IN PLACE, SIDE RAILS UP. PT CONT. TO BE TELE HOLD, AWAITING ROOM ASSIGNMENT ON FLOOR. REMAINS A&OX4.
--- NOTE | 2019-07-27 00:57 | NUR ---
BEDSIDE REPORT AND TRANSFER OF CARE TO NOAH RN AT THIS TIME.
[2019-07-27] MEDS ORDERED: HEPARIN 5,000 UNITS/ML, 1ML ONE ×2 (01:22→08:57)
[2019-07-27 01:27] LABS: FREE T4 (FREE THYROXINE) 0.95 ng/dL (0.76-1.46)
[2019-07-27] MEDS: HEPARIN 5,000 UNITS/ML, 1ML SQ SCH ×3 (01:34→17:58)
[2019-07-27 01:35] LABS: HEMOGLOBIN A1C 5.4 % (4.2-6.3)
--- NOTE | 2019-07-27 01:51 | NUR ---
PT RESTING ON HOSPITAL BED. RESPIRATIONS EVEN AND UNLABORED. NO ACUTE DISTRESS. NO REQUESTS AT THIS TIME.
[2019-07-27 03:54] LABS: BASOPHILS # (AUTO) 0.03 x10^3/uL (0-0.1); BASOPHILS % (AUTO) 0 % (0-1); EOSINOPHILS % (AUTO) 4 % (1-7); LYMPHOCYTES # (AUTO) 1.76 x10^3/uL (1-3.4); LYMPHOCYTES % (AUTO) 16 % (22-44); MD NO; MEAN CORPUSCULAR HEMOGLOBIN 27.5 pg (27.5-34.5); MEAN CORPUSCULAR HGB CONC 32.7 g/dL (33.2-36.2); MEAN CORPUSCULAR VOLUME 84.2 fL (81-97); MEAN PLATELET VOLUME 7.8 fL (7.4-10.4); MONOCYTES # (AUTO) 0.27 x10^3/uL (0.2-0.8); MONOCYTES % (AUTO) 2 % (2-9); NEUTROPHILS # (AUTO) 8.61 x10^3/uL (1.8-6.8); NEUTROPHILS % (AUTO) 78 % (42-75); PLATELET COUNT 255 x10^3/uL (130-400); RED BLOOD COUNT 3.17 x10^6/uL (4.38-5.82); RED CELL DISTRIBUTION WIDTH 16.2 % (9.4-14.8)
[2019-07-27 04:03] LABS: ALANINE AMINOTRANSFERASE 15 U/L (12-78); ALBUMIN 2.5 g/dL (3.4-5.0); ANION GAP 5 mmol/L (5-15); CALCIUM 8.4 mg/dL (8.5-10.1); CHLORIDE 105 mmol/L (98-107); CHOLESTEROL, TOTAL 160 mg/dL (140-239); CREATININE 1.21 mg/dL (0.7-1.3)
[2019-07-27 04:08] LABS: ALKALINE PHOSPHATASE 92 U/L (45-117); BILIRUBIN,TOTAL 0.2 mg/dL (0.2-1.0); CHOL/HDL RATIO 4.4; HDL CHOL % 23 % (26-37); HDL CHOLESTEROL (DIRECT) 36 mg/dL (40-60); LDL CHOLESTEROL,CALCULATED 94 mg/dL (54-169); LDL/HDL RATIO 2.6 (0.5-3.0); TOTAL PROTEIN 7.8 g/dL (6.4-8.2); TRIGLYCERIDES 148 mg/dL (50-200); TROPONIN I 0.037 ng/mL (0.000-0.045); VLDL CHOLESTEROL 30 mg/dL (0-25)
--- NOTE | 2019-07-27 04:36 | NUR ---
PT RESTING ON HOSPITAL BED WITH EYES CLOSED. RESPIRATIONS EVEN AND UNLABORED. NO ACUTE DISTRESS. NO REQUESTS AT THIS TIME.
[2019-07-27] MEDS: ASPIRIN 325 MG TABLET EC PO SCH (06:00)
[2019-07-27 06:22] LABS: TROPONIN I 0.065 ng/mL (0.000-0.045)
--- NOTE | 2019-07-27 07:01 | NUR ---
REPORT TO MARGO MOSLEY
--- NOTE | 2019-07-27 07:10 | NUR ---
REPORT RECEIVED FROM MARGO ZAMORA. PLAN OF CARE DISCUSSED.
[2019-07-27] MEDS ORDERED: METOPROLOL TARTRATE 25 MG TABLET ONE (08:57)
[2019-07-27] MEDS: METOPROLOL TARTRATE 25 MG TABLET PO SCH ×2 (09:00→20:41)
[2019-07-27] MEDS: LISINOPRIL 40 MG TABLET PO SCH (09:53)
--- NOTE | 2019-07-27 09:57 | NUR ---
PATIENT MEDICATED PER EMAR, HELD METOPROLOL DUE TO LOW BP AT 95/51. VERIFIED WITH ADMITTING MD OKAY TO EAT, ATE BREAKFAST. PATIENT BACK TO REST, CALL LIGHT IN REACH.
--- NOTE | 2019-07-27 11:10 | NUR ---
PATIENT RESTING COMFORTABLY, REPIRATIONS EVEN AND UNLABORED, VSS, CALL LIGHT IN REACH.
--- NOTE | 2019-07-27 12:12 | NUR ---
PATIENT PROVIDED WITH LUNCH, EATING IN BED, CALL LIGHT IN REACH.
[2019-07-27] MEDS ORDERED: MAALOX/HYOSCYAMINE/LIDOCAINE 45 ML BTL PO PRN (12:30)
[2019-07-27] MEDS ORDERED: FAMOTIDINE 20 MG TABLET PO SCH (12:30)
[2019-07-27] MEDS ORDERED: CALCIUM CARBONATE 500 MG TAB.CHEW PO PRN (12:30)
[2019-07-27 13:12] LABS: TROPONIN I 0.151 ng/mL (0.000-0.045)
--- NOTE | 2019-07-27 13:26 | NUR ---
LAB CALLED FOR CRITICAL VALUE, INCREASE TROPONIN. CALLED AND NOTIFIED.
[2019-07-27] MEDS ORDERED: FAMOTIDINE 20 MG TABLET ONE (13:30)
--- NOTE | 2019-07-27 13:44 | NUR ---
REPORT GIVEN TO MARGO MORLEY. PLAN OF CARE DISCUSSED.
[2019-07-27 14:05] VITALS: BP 123/70
[2019-07-27 18:08] LABS: TROPONIN I 0.148 ng/mL (0.000-0.045)
[2019-07-27 19:48] VITALS: BP 123/69
[2019-07-27] MEDS: FAMOTIDINE 20 MG TABLET PO SCH (20:41)
[2019-07-28] MEDS: HEPARIN 5,000 UNITS/ML, 1ML SQ SCH ×3 (02:21→18:20)
[2019-07-28 03:11] VITALS: BP 146/83
[2019-07-28] MEDS: ASPIRIN 325 MG TABLET EC PO SCH (05:18)
[2019-07-28 05:56] LABS: MEAN CORPUSCULAR HEMOGLOBIN 27.4 pg (27.5-34.5); MEAN CORPUSCULAR HGB CONC 32.2 g/dL (33.2-36.2); MEAN CORPUSCULAR VOLUME 85.1 fL (81-97); MEAN PLATELET VOLUME 7.8 fL (7.4-10.4); PLATELET COUNT 274 x10^3/uL (130-400); RED BLOOD COUNT 3.19 x10^6/uL (4.38-5.82); RED CELL DISTRIBUTION WIDTH 16.1 % (9.4-14.8)
[2019-07-28 06:04] LABS: CHLORIDE 105 mmol/L (98-107)
[2019-07-28 06:13] LABS: ANION GAP 6 mmol/L (5-15); CALCIUM 8.7 mg/dL (8.5-10.1); CREATININE 1.24 mg/dL (0.7-1.3)
[2019-07-28 06:28] LABS: MD YES
[2019-07-28 06:30] LABS: ANISOCYTOSIS 1+; BANDS%(MANUAL) 1 % (0-7); EOS#(MANUAL) 0.69 x10^3/uL (0.0-0.4); EOS% (MANUAL) 7 % (1-7); LYMPH#(MANUAL) 1.47 x10^3/uL (1-3.4); LYMPHS% (MANUAL) 15 % (22-44); MONOS#(MANUAL) 0.98 x10^3/uL (0.3-2.7); MONOS% (MANUAL) 10 % (2-9); SEG#(MANUAL) 6.57 x10^3/uL (1.8-6.8); SEGS% (MANUAL) 67 % (42-75)
[2019-07-28 06:31] LABS: <PLATELET ESTIMATE> ADEQUATE; <PLT MORPHOLOGY> NORMAL PLT MORPH; POLYCHROMASIA 1+
[2019-07-28 07:18] VITALS: BP 134/77
[2019-07-28] MEDS: LISINOPRIL 40 MG TABLET PO SCH (08:52)
[2019-07-28] MEDS: METOPROLOL TARTRATE 25 MG TABLET PO SCH ×2 (08:52→22:21)
[2019-07-28 13:45] VITALS: BP 118/66
[2019-07-28] MEDS ORDERED: VANCOMYCIN 1,300 MG in SODIUM CHLORIDE 0.9% 250 ML IV ONE (14:00)
[2019-07-28] MEDS ORDERED: PHARMACOKINETIC MONITORING MC PRN (14:00)
[2019-07-28] MEDS ORDERED: PHARMACOKINETIC CONSULTATION MC ONE (14:00)
[2019-07-28] MEDS ORDERED: VANCOMYCIN PER PHARMACY MC PRN (14:00)
[2019-07-28] MEDS: CARVEDILOL 12.5 MG TABLET PO SCH (18:21)
[2019-07-28 19:21] VITALS: BP 128/77
[2019-07-28] MEDS ORDERED: VANCOMYCIN IV SCH (21:00)
[2019-07-28] MEDS ORDERED: CHLORHEXIDINE GLUCONATE MOUTHWASH 0.12%, 473ML MM SCH (21:00)
[2019-07-28] MEDS: FAMOTIDINE 20 MG TABLET PO SCH (22:20)
[2019-07-28] MEDS: CHLORHEXIDINE 15 ML UDC MM SCH (22:35)
[2019-07-29 00:56] VITALS: BP 144/77
[2019-07-29] MEDS: HEPARIN 5,000 UNITS/ML, 1ML SQ SCH ×2 (02:00→10:10)
[2019-07-29] MEDS: ASPIRIN 325 MG TABLET EC PO SCH (05:40)
[2019-07-29] MEDS: CARVEDILOL 12.5 MG TABLET PO SCH (05:41)
[2019-07-29 07:09] VITALS: BP 118/68
[2019-07-29] MEDS ORDERED: ATORVASTATIN 20 MG TABLET PO SCH (09:00)
[2019-07-29] MEDS ORDERED: AMLODIPINE 2.5 MG TABLET PO SCH (09:00)
[2019-07-29] MEDS: CHLORHEXIDINE 15 ML UDC MM SCH (10:10)
[2019-07-29 10:17] VITALS: BP 96/53
[2019-07-29] MEDS: LISINOPRIL 40 MG TABLET PO SCH (10:21)
[2019-07-29] MEDS: METOPROLOL TARTRATE 25 MG TABLET PO SCH (10:21)
[2019-07-29] MEDS ORDERED: VANC1.2514 IV (12:11)
[2019-07-29 12:49] VITALS: BP 113/65
[2019-07-29] MEDS ORDERED: VANCOMYCIN 1,300 MG in SODIUM CHLORIDE 0.9% 250 ML IV SCH (14:00)
== END 2019-07-29 16:23 | DRG 198 ==
LOC: ED 07-27 00:15 → EDIP 07-27 00:33 → 5SO 07-27 14:04
PROVIDERS: ADMIT Internal Medicine; ATTEND Family Medicine
DX: R07.9 Chest pain, unspecified (principal); I25.10 Atherosclerotic heart disease of native coronary artery without angina pectoris; B19.20 Unspecified viral hepatitis C without hepatic coma; D64.9 Anemia, unspecified; D72.829 Elevated white blood cell count, unspecified; E78.5 Hyperlipidemia, unspecified; I10 Essential (primary) hypertension; J44.9 Chronic obstructive pulmonary disease, unspecified; K21.9 Gastro-esophageal reflux disease without esophagitis; N40.0 Benign prostatic hyperplasia without lower urinary tract symptoms; Z87.891 Personal history of nicotine dependence; Z95.2 Presence of prosthetic heart valve
CPT/HCPCS: 36415; 71045; 71275; 80048; 80053; 80061; 80202; 83036; 83735; 83880; 84439; 84443; 84484; 85025; 85379; 87081; 93005; 93306; 99285; G0378; J1644; J3370; Q9967; J7050